=== PATIENT | male | born 1995 | race Caucasian/White ===

== ENCOUNTER 2019-04-06 11:27 | Inpatient (IN) | payer BC ==
--- NOTE | 2019-04-06 11:45 | ED ---
Psychiatric Complaint - HPI Summary HPI Summary: Patient is a 24-year-old male who presents emergency department for psychiatric evaluation. Patient notes a history of depression and is currently on fluoxetine. Patient has had 2 prior admissions to psychiatric unit. 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 Patient states he has been feeling more depressed and suicidal since returning to school. Patient states he tried to strangle himself yesterday with a belt. He also has plans to take his bottle of fluoxetine. Symptoms are severe in severity. No current modifying factors. - History Of Current Complaint Chief Complaint: EDSuicidal Time Seen by Provider: 04/06/19 11:38 Hx Obtained From: Patient - Allergies/Home Medications Allergies/Adverse Reactions: Allergies Allergy/AdvReac Type Severity Reaction Status Date / Time No Known Allergies Allergy Verified 04/06/19 11:37 Home Medications: Home Medications FLUoxetine CAP* [PROzac CAP*] 30 mg PO DAILY 04/06/19 [History Confirmed ] PMH/Surg Hx/FS Hx/Imm Hx Previously Healthy: Yes Endocrine/Hematology History: Denies: Hx Diabetes Cardiovascular History: Denies: Hx Hypertension, Hx Pacemaker/ICD History: Denies: Hx Renal Disease Sensory History: Denies: Hx Hearing Aid Psychiatric History: Denies: Hx Panic Disorder - Surgical History Surgery Procedure, Year, and Place: DENIES Infectious Disease History: No Infectious Disease History: Reports: Traveled Outside the [place] in Last 30 Days - [place] - Family History Known Family History: Positive: Non-Contributory - Social History Occupation: Student Lives: Dormitory/Roommates Review of Systems Cardiovascular: Negative Respiratory: Negative Gastrointestinal: Other Positive: Nausea Neurological: Negative Positive: Depressed All Other Systems Reviewed And Are Negative: Yes Physical Exam Triage Information Reviewed: Yes Vital Signs On Initial Exam: Initial Vitals Temp Pulse Resp BP Pulse Ox 98.3 F 59 16 130/80 97 04/06/19 11:33 04/06/19 11:33 04/06/19 11:33 04/06/19 11:33 04/06/19 11:33 Vital Signs Reviewed: Yes Appearance: Positive: Well-Appearing - Pt. sitting on Head/Face: Positive: Normal Head/Face Inspection Eyes: Positive: Normal, EOMI Neck: Positive: Supple Musculoskeletal: Positive: Normal, Strength/ROM Intact Neurological: Positive: Normal, CN Intact II-III Psychiatric: Positive: Depressed Diagnostics - Vital Signs Vital Signs Temp Pulse Resp BP Pulse Ox 04/06/19 11:33 98.3 F 59 16 130/80 97 - Laboratory Result Diagrams: 04/06/19 11:59 04/06/19 11:59 Lab Statement: Any lab studies that have been ordered have been reviewed, and results considered in the medical decision making process. Course/Dx - Course Course Of Treatment: Pt. medically cleared and underwent MHE. He has been accepted to the [facility] by Dr. Austin. Labs unremarkable. - Differential Dx/Clinical Impression Differential Diagnosis/HQI/PQRI: Positive: Depression, Suicide Attempt, Suicidal Ideation Provider Diagnosis: Depression Discharge ED - Sign-Out/Discharge Documenting (check all that apply): Patient Departure Patient Received Moderate/Deep Sedation with Procedure: No - Discharge Plan Condition: Stable [facility] [place] and Condition Condition: STABLE Disposition: [place] [facility] [place]
[2019-04-06 12:11] LABS: ABS Lymphocytes 1.6 10^3/ul (1.0-4.8); ABS Monocytes 0.7 10^3/ul (0-0.8); ABS Neutrophils 6.5 10^3/ul (1.5-7.7); Eosinophil % 0.4 %; Hematocrit 43 % (42-52); Hemoglobin 14.8 g/dL (14.0-18.0); Lymphocyte % 18.3 %; Mean Corpuscular HGB Conc 35 g/dL (31-36); Mean Corpuscular Hemoglobin 32 pg (27-31); Mean Corpuscular Volume 92 fL (80-94); Mean Platelet Volume 9.2 fL (7.4-10.4); Nucleated Red Blood Cells % 0.1; Platelet Count 268 10^3/uL (150-450); Red Blood Count 4.64 10^6 /uL (4.18-5.48); Red Cell Distribution Width 13 % (10-15)
[2019-04-06 12:27] LABS: ALT 12 U/L (7-52); AST 13 U/L (13-39); Albumin 5.1 g/dL (3.2-5.2); Albumin/Globulin Ratio 1.8 (1-3); Alkaline Phosphatase 68 U/L (34-104); Anion Gap 9 mmol/L (2-11); BUN/Creatinine Ratio 12.6 (8-20); Blood Urea Nitrogen 12 mg/dL (6-24); CO2 Carbon Dioxide 26 mmol/L (22-32); Chloride 102 mmol/L (101-111); EGFR Non-African American 99.1 (>60); Globulin 2.9 g/dL (2-4); Glucose 105 mg/dL (70-100); Sodium 137 mmol/L (135-145)
[2019-04-06 13:05] LABS: Acetaminophen < 15 mcg/mL; Alcohol < 10 mg/dL (<10); Salicylate < 2.50 mg/dL (<30)
[2019-04-06 13:18] LABS: TSH (Thyroid Stimulating Horm) 0.83 mcIU/mL (0.34-5.60)
[2019-04-06] MEDS ORDERED: Al Hydrox/Mg Hydrox/Simet LIQ* 30 ML UDC PO PRN (13:31)
[2019-04-06] MEDS ORDERED: Acetaminophen TAB* 325 MG PO PRN (13:31)
[2019-04-06] MEDS ORDERED: hydrOXYzine HCL TAB* 50 MG PO PRN (13:32)
[2019-04-06 15:54] LABS: Urine Appearance Cloudy; Urine Bilirubin Negative (Negative); Urine Blood Negative (Negative); Urine Color Yellow; Urine Glucose Negative (Negative); Urine Ketones 1+ (Negative); Urine Nitrite Negative (Negative); Urine Protein Negative (Negative); Urine Specific Gravity 1.019 (1.010-1.030); Urine Urobilinogen Negative (Negative)
[2019-04-06 16:02] LABS: Urine Benzodiazepine Screen None Detected (None Detect); Urine Opiates Screen None Detected (None Detect)
[2019-04-07] MEDS ORDERED: FLUoxetine CAP* 10 MG PO SCH (09:00)
[2019-04-07] MEDS ORDERED: cloNIDine TAB* 0.1 MG PO PRN (10:34)
[2019-04-07] MEDS ORDERED: FLUoxetine CAP* 10 MG PO ONE (10:34)
[2019-04-07] MEDS ORDERED: diPHENhydraMINE PO* 50 MG PO PRN (10:36)
--- NOTE | 2019-04-07 14:09 | HP ---
HISTORY AND PHYSICAL: DATE OF ADMISSION: 04/06/19 SUPERVISING PSYCHIATRIST: Dr. Jeb Austin.* (DICTATED BY JANEY CLAUDIO NP) JUSTIFICATION FOR ADMISSION: The patient presented to the emergency department via EMS after meeting with his primary care provider. He had an aborted suicide attempt and continues to endorse suicidal ideation. He merits hospitalization for immediate safety and stabilization. 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 Iqbal. The patient reports increasing depression in the past month. He reports he returned to campus last Thursday. 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 The patient endorses feeling overwhelmed and unable to function. He states that he has poor concentration and he is having difficulty getting prepared for this semester. 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 He states that he is having difficulty sleeping. He endorses low energy, low motivation, and depressed mood. He reports decreased appetite with a loss of 5 to 10 pounds. He reports thoughts of suicidal ideation in the past, but this was his first attempt. He tried to asphyxiate himself with his belt. He also wrote a suicide note that he shared with Dr. Iqbal. He endorses panic attacks up to twice a week. The patient reports he had a stressful freshman and sophomore years; however, he did well his jesus year. He reports that he went to counseling at [employer] during the fall semester of his jesus year and that this went well. He stopped going in the spring for lack of need. He has been prescribed fluoxetine by Dr. Iqbal and a provider in [place]. He reports a history of increased dose, but has recently been taking 30 mg daily. He denies side effects from this medicine. He reports taking it regularly. Dr. Iqbal had called the mental health chair spring assembler and reported that she was sending him due to suicidal ideation which is outside of her known history with him. She reports he has a history of depression since high school and he follows up with both [employer] and a local provider in [place]. The patient also endorses that he is on the varsity tennis team and he is having difficulty attending the first practice because of anxiety. He reports he has a girlfriend who graduated from [employer] last December and now lives home in [place]. He reports this relationship is going well and she is supportive. He does state that it is difficult to be so far away from her at this time. PAST PSYCHIATRIC HISTORY: The patient has a history of 2 psychiatric hospitalizations in [place]. He started counseling when he was approximately a freshman in high school. He has been trialed on fluoxetine with various doses. He reports a trial of aripiprazole in approximately 2012 and his family noted side effects of lethargy and weight gain. As stated above , the patient saw a therapist, Gilbert Ravi, at [employer] during the fall of 2017. The patient denies a history of abuse or trauma. SUBSTANCE USE HISTORY: The patient reports occasional alcohol use 1 to 2 drinks at a time and that his last use was last weekend. He reports rare marijuana use, last use in December. He denies tobacco, pills, or other substance use. PAST MEDICAL HISTORY: Torn left ACL. He denies other medical problems or surgeries. CURRENT MEDICATIONS: Fluoxetine 30 mg. ALLERGIES: No known drug allergies. PRIMARY CARE PROVIDER: Dr. Dayna Iqbal at [employer]. FAMILY PSYCHIATRIC HISTORY: The patient reports his mother's side has a history of depression. He has no knowledge of other mental health diagnosis or suicide in the family. SOCIAL HISTORY: The patient is the eldest of 2 sons by parents who 2 to 3 years ago. His father lives in [place]. His mom lives in [place]. The patient's younger brother is 18 and a freshman at [employer]. The patient denies history of legal or involvement. As stated above, the patient is in a heterosexual relationship and reports this is going well. REVIEW OF SYSTEMS: Constitutional: Negative. No fever, chills, or fatigue. ENT: Negative. Cardiovascular: Negative. Denies chest pain or palpitations. Respiratory: Negative. Denies shortness of breath or cough. Genitourinary: Negative. Musculoskeletal: Negative. Neurological: Negative. PHYSICAL EXAMINATION GENERAL APPEARANCE: The patient is well appearing and well nourished. VITAL SIGNS: T 98.2, P 63, respiration rate 16, O2 saturation 100%, BP 133/67. Height 5 feet 9 inches, weight 190 pounds. HEENT: Head and Face: Normal head and face inspection. Eyes: Positive EOMI. PERRL. Conjunctivae clear. NECK: Supple. Full ROM. Trachea midline. RESPIRATORY: Lung sounds clear to auscultation. Breath sounds present. CARDIOVASCULAR: Heart RRR. Pulses are symmetrical in both upper and lower extremities. MUSCULOSKELETAL: Normal strength. ROM intact. NEUROLOGICAL: Normal sensory, motor intact. Alert and oriented x3 with normal gait. Cerebellar function intact. SKIN: Warm and dry. Color reflects adequate perfusion. DIAGNOSTIC STUDIES/LAB DATA: Laboratory data obtained in the emergency department. CBC within normal limits. Chemistry within normal limits. TSH normal at 0.83. Urinalysis, 1+ ketones. Toxicology negative for salicylates, acetaminophen, or alcohol and urine drug screen is negative. MENTAL STATUS EXAM: Kulwinder is a 24-year-old white male with muscular build, who appears stated age. He is adequately groomed and casually dressed in T-shirt and shorts. He sits in chair with erect, but tense posture. He is cooperative and answers questions fully. He appears to be a good historian. The patient is alert and oriented x3. Eye contact is good. Speech is soft, articulate, and spontaneous. Concentration is poor. Memory 3/3. Mood is dysphoric with tearful affect. No abnormal psychomotor activity noted. Thought process is coherent, impoverished. Thought content is positive for suicidal ideation. He denies HI or . He denies auditory or visual hallucinations. There are no perceptual disturbances noted. Insight and judgment are fair, in that he is willing to be admitted to a psychiatric unit for stabilization. Fund of knowledge is adequate. The patient appears to have average intellect by virtue of vocabulary and educational attainment. DIAGNOSIS: Major depressive disorder, severe, recurrent, with anxious distress. ASSESSMENT: Kulwinder is a 24-year-old male with 2 known prior psychiatric admissions as a teenager in high school who presented to the ED after an appointment with his college physician, wherein he disclosed an aborted suicide attempt. He was willing to be transferred to [facility] for psychiatric admission. He endorses many symptoms concurrent with major depressive disorder including suicidal ideation. According to Dr. Iqbal, the patient has a history of anxiety related to periods of transition. The patient has consented to full psychiatric treatment including collaboration with outpatient providers and his family. PLAN: The patient is admitted to adult behavioral services unit on voluntary status. Code status is full. He is placed on 15-minute checks for safety. We have discussed recommendation to increase SSRI and utilize clonidine as needed for anxiety. We will trial diphenhydramine for sleep. The patient is encouraged to participate in supportive milieu, individual sessions with staff, and psychoeducational groups. We will titrate medications to efficacy and monitor for mood and thought content. Treatment planning will include family involvement and outpatient providers. Estimated length of stay is 3 to 5 days. JANEY CLAUDIO NP [id number]/CPS #: [id number] JACINTO
[2019-04-08 08:28] LABS: HDL Cholesterol 24.7 mg/dL
[2019-04-08] MEDS: FLUoxetine CAP* 20 MG PO SCH (10:55)
--- NOTE | 2019-04-08 11:35 | PN ---
BSU: Group Therapy Note - Service Type Service Type: 42315 Group Psychotherapy - CBT Group Note: Kulwinder was attentive and particaptory in programming this morning, engaging in an earnest and thoughtful fashion. He presented with fair affect that varied appropriately with conversation and was empathic with staff and peers. He described struggling to adjust to moving back to college recently.
--- NOTE | 2019-04-08 16:15 | PN ---
Subjective - Subjective Date of Service: 04/08/19 Service Type: 22784 Hosp care 25 min moderate complexity Subjective: Patient reports hopefulness and that he had a "sheridan" moment during a group last evening. He states he slept very well and denies anxiety. He denies readiness for discharge today and is agreeable to leave with his mother upon her arrival tomorrow. He denies SI or passive wish. He has been participating in discharge planning. Candlemaker spoke with patient's PCP, Dr Iqbal and gave update on presentation and medication changes. She states she spoke with psychiatrist and is hopeful that the patient will be given an intake appointment. She will also see him for follow up. Objective - General Observations Appearance: Neat Stature: WNL Posture: WNL Eye Contact: Average Behavior/Activity: WNL - Interaction Observations Attitude Towards Examiner: Cooperative Stated Mood: Euthymic Affect: Bright Speech Pattern/Tone: Clear, Appropriate, Normal Volume Thought Process: Coherent, Goal Directed Perception: WNL Thought Content: WNL Hallucination Type: None Delusion Type: None - Cognitive Function Orientation: A&O x 4 Level of Consciousness: Alert Cognition: WNL Estimated Intelligence: Normal Insight: WNL Judgment Within Normal Limits: Yes - Medication Compliance Cooperative with Inpatient Medication Regimen: Yes - Group Participation Participates in Group Activities: Yes Assessment - Assessment Merits Inpatient Hospitalization: For Immediate Safety, For Stabilization Inpatient DSM-V Dx: F33.1 Clinical Impression: 24yo white male with 2 prior psychiatric hospitalizations and history of depression and anxiety who presented to the ED after an appointment with his [facility] physician, wherein he disclosed an aborted suicide attempt. He agreed to transfer to [facility] for psychiatric admission. He endorses much improvement in mood, anxiety and sleep during hospitalization. Plan - Plan Treatment Plan: Name: ELI CHAMBERLAIN Birthdate: 1995 [id number] continue acute intensive psychiatric treatment. may decrease to q30min and allow staff pass/computer use per RN discretion. continue fluoxetine 40mg daily, clonidine 0.1mg BID prn anxiety and diphenhydramine 50mg qhs prn insomnia. Patient's mother is planning to arrive on 04/09/19 to assist with discharge and transition to outpatient care. Continued Medication Management: Start Medication Medications: Current Medications Acetaminophen (Tylenol Tab*) 650 mg PO Q4H PRN PRN Reason: for pain; or Temp >101 F Al Hydrox/Mg Hydrox/Simethicone (Maalox Plus*) 30 ml PO Q4H PRN PRN Reason: INDIGESTION Clonidine HCl (Catapres Tab*) 0.1 mg PO BID PRN PRN Reason: ANXIETY Diphenhydramine HCl (Benadryl Po*) 50 mg PO BEDTIME PRN PRN Reason: INSOMNIA Fluoxetine HCl (Prozac Cap*) 40 mg PO DAILY MYESHA Last Admin: 04/08/19 10:55 Dose: 40 mg - Discharge Plan Discharge Plan: Inpatient Hospitalization Outpatient Program: [facility]
[2019-04-09 09:51] VITALS: BP 103/83
[2019-04-09] MEDS: FLUoxetine CAP* 20 MG PO SCH (11:26)
--- NOTE | 2019-04-10 20:42 | PN ---
Progress Note - Progress Note Date of Service: 04/09/19 Note: Saw Kulwinder prior to his mother picked him up. Kulwinder presented psychiatrically stable without any evidence of mood, thoughts or perceptual disturbances. Denied SI/ HI. Was safe to go home with his mother.
--- NOTE | 2019-04-12 13:08 | DS ---
CC: [facility]; [facility]* DISCHARGE SUMMARY: DATE OF ADMISSION: 04/06/19 DATE OF DISCHARGE: 04/09/19 SUPERVISING PSYCHIATRIST: Jeb Austin MD* (dictated by CESAR Stock) . DISCHARGE DIAGNOSES: Major depressive disorder with anxious distress. CONDITION AT THE TIME OF DISCHARGE: Improved. The patient is euthymic with bright affect. He is well related. He reports readiness for discharge. His mother has arrived from out of state to pick him up and reports intent to remain with him for a few days while he transitions back to [facility]. The patient denies suicidal ideation. He reports improvement in mood, appetite , and sleep. He reports being in contact with the college and friends had been supportive to him. The patient is discharged to home. MENTAL STATUS EXAM: Kulwinder is a 24-year-old white male with muscular build, who appears stated age. He is adequately groomed and causally dressed in his own clothing. He is cooperative and answered questions fully. He is alert and oriented x3. Eye contact is good. Speech is soft, articulate, and spontaneous. Concentration is good. Memory 3/3. Mood is euthymic with bright affect. No abnormal psychomotor activity noted. Thought process is coherent, goal directed. Thought content is negative for suicidal ideation or passive wish. He denies HI or . He denies auditory or visual hallucinations. There are no perceptual disturbances noted. Insight and judgment are good. Fund of knowledge is excellent. Intelligence appears to be average. INSTRUCTIONS GIVEN TO PATIENT: A. Medications: 1. Fluoxetine 40 mg p.o. daily. 2. Clonidine 0.1 mg p.o. daily p.r.n. anxiety. 3. Diphenhydramine 50 mg p.o. q.h.s. p.r.n. insomnia. 4. Fluoxetine and clonidine were prescribed to [facility]. B. Diet: Regular. C: Activity: Ambulation as tolerated. Tobacco cessation is not applicable. There are no pending labs or diagnostic studies. Substance use followup is not applicable. D: Followup care: The patient will return to [facility] for primary care and will see Dr. Iqbal. He is referred to Nathalie Mcfarland as a revenue manager and will meet with him after the holiday weekend, and the patient has appointments at [facility] for therapy and psychiatry. HOSPITAL COURSE: Part A: Reason for admission: The patient presented to the emergency department via EMS after meeting with his primary care provider. He had an aborted suicide attempt and continued to endorse suicidal ideation. Chief Complaint: "I have been having a lot of negative thoughts. 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 Iqbal. The patient reports increasing depression in the past month. He reports he returned to campus last Thursday. 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 The patient endorses feeling overwhelmed and unable to function. He reports poor concentration and having difficulty getting prepared for the semester. 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 He states he is having difficulty sleeping. He endorses low energy, low motivation , and depressed mood. He reports decreased appetite with a loss of 5 to 10 pounds. He reports thoughts of suicidal ideation in the past but this is his first attempt. He tried to strangle himself with his belt. He also wrote a suicide note that he shared with Dr. Iqbal. He endorses panic attacks up to twice a week. The patient reports he had stressful freshman and sophomore years ; however, he did well in his jesus year. He reports he went to counseling at during the fall semester of his jesus year and that this went well. He stopped going in the spring for lack of need. He has been prescribed fluoxetine by Dr. Iqbal and a provider in [place]. He reports a history of increased dose but had recently been taking 30 mg. He denies side effects from this medicine and reports taking it regularly. Dr. Iqbal had called the mental health lounge car attendant and reported that she will be sending him due to suicidal ideation, which is outside of her known history with him. She reports he has a history of depression since high school and he follows up with both and a local provider in [place]. The patient also endorses that he is on the varsity tennis team and he is having difficulty attending the first practice because of anxiety. He reports he has a girlfriend who graduated from last December and now lives home in [place]. He reports this relationship is going well and she is supportive. He does state that it is difficult to be so far away from her at this time. Part B: Psychiatric treatment rendered: The patient was admitted to adult behavioral services unit on voluntary status. Code status was full. He was placed on 15-minute checks for safety. We increased fluoxetine to 40 mg daily and the patient was ordered clonidine as needed for anxiety. He did not utilize this or diphenhydramine for sleep. He participated fully in supportive milieu, individual sessions with staff and psychoeducational groups. The following day after hospitalization, the patient reported much improvement in sleep. He reported desire to remain in the hospital for 1 more day for safety and to have another good night sleep. He reported that groups were helpful and being in contact with [facility] professional was helpful as well. The patient's primary care provider and this senior writer collaborated on the phone and she referred him to the [facility] psychiatrist to be seen after discharge. On the day of discharge, the patient reported readiness. His mother had arrived from [place] as planned. Please see H and P for laboratory data. There were no consults obtained. JANEY CLAUDIO NP [id number]/CPS #: [id number] JACINTO
== END 2019-04-09 16:00 | disposition home or self-care (01) | DRG 751 ==
LOC: ED 11:27 → BSU 13:31
PROVIDERS: ADMIT Psychiatry & Neurology Psychiatry; ATTEND Psychiatry & Neurology Psychiatry
PROC: GZHZZZZ Group Psychotherapy (ICD-10-PCS; principal; 2019-04-08)
DX: F33.2 Major depressive disorder, recurrent severe without psychotic features (principal); R45.851 Suicidal ideations; F41.9 Anxiety disorder, unspecified; Z81.8 Family history of other mental and behavioral disorders; Z72.89 Other problems related to lifestyle
CPT/HCPCS: 36415; 80053; 80061; 80307; 80320; 80329; 81003; 83036; 84443; 85025; 99222; 99284; A9270-GY; G0480

== ENCOUNTER 2019-04-20 15:24 | Inpatient (IN) | payer BC ==
[2019-04-20 16:06] LABS: ABS Basophils 0.1 10^3/ul (0-0.2); ABS Eosinophils 0.1 10^3/ul (0-0.6); ABS Lymphocytes 2.2 10^3/ul (1.0-4.8); ABS Monocytes 0.9 10^3/ul (0-0.8); ABS Neutrophils 6.7 10^3/ul (1.5-7.7); Eosinophil % 0.8 %; Hematocrit 44 % (42-52); Hemoglobin 15.2 g/dL (14.0-18.0); Lymphocyte % 21.8 %; Mean Corpuscular HGB Conc 35 g/dL (31-36); Mean Corpuscular Hemoglobin 32 pg (27-31); Mean Corpuscular Volume 92 fL (80-94); Mean Platelet Volume 9.4 fL (7.4-10.4); Nucleated Red Blood Cells % 0.1; Platelet Count 287 10^3/uL (150-450); Red Blood Count 4.72 10^6 /uL (4.18-5.48); Red Cell Distribution Width 12 % (10-15); White Blood Count 9.9 10^3/uL (3.5-10.8)
--- NOTE | 2019-04-20 16:15 | ED ---
Psychiatric Complaint - HPI Summary HPI Summary: This patient is a 24 year old M presenting to [facility] with a chief complaint of SI with ideas since yesterday. Pt states he was on a bridge yesterday thinking about jumping off. Pt has been feeling depressed for 2-3 weeks and says he is not himself. He last saw a psychiatrist 2 weeks ago when he was admitted to [facility]. He was diagnosed with depression and anxiety. The patient rates the pain 0/ 10 in severity. Symptoms aggravated by nothing. Symptoms alleviated by nothing. Patient denies HI, hallucinations, and physical pain. Medications reviewed. Allergies noted. Pt does not smoke or use drugs, and rarely drinks alcohol. - History Of Current Complaint Chief Complaint: EDMentalHealth Time Seen by Provider: 04/20/19 15:36 Hx Obtained From: Patient Onset/Duration: Sudden Onset, Lasting Days - 1 Timing: Constant Severity Initially: Moderate Severity Currently: Moderate Aggravating Factor(s): Nothing Alleviating Factor(s): Nothing Associated Signs And Symptoms: Negative: Hallucinating Has Suicidal: Reports: Thoughts, With A Plan - jumping off a bridge Has Homicidal: Denies: Thoughts, With A Plan - Allergies/Home Medications Allergies/Adverse Reactions: Allergies Allergy/AdvReac Type Severity Reaction Status Date / Time No Known Allergies Allergy Verified 04/06/19 11:37 PMH/Surg Hx/FS Hx/Imm Hx Previously Healthy: No Endocrine/Hematology History: Denies: Hx Diabetes Cardiovascular History: Denies: Hx Hypertension, Hx Pacemaker/ICD History: Denies: Hx Renal Disease Sensory History: Denies: Hx Contacts or Glasses, Hx Hearing Aid Opthamlomology History: Denies: Hx Contacts or Glasses Psychiatric History: Reports: Hx Anxiety, Hx Depression Denies: Hx Eating Disorder, Hx Panic Disorder, Hx of Violent Episodes Against Others - Surgical History Surgical History: Yes Surgery Procedure, Year, and Place: ACL repair January 2018 Infectious Disease History: No Infectious Disease History: Denies: Traveled Outside the [place] in Last 30 Days - Family History Known Family History: Positive: Non-Contributory - Social History Alcohol Use: Rare Substance Use Type: Reports: Marijuana Smoking Status (MU): Never Smoked Tobacco Review of Systems Constitutional: Other - negative - physical pain Psychological: Other - positive - SI with a plan. negative - HI, hallucinations Positive: Depressed All Other Systems Reviewed And Are Negative: Yes Physical Exam - Summary Physical Exam Summary: Constitutional: Well-developed, Well-nourished, Alert. (-) Distressed Skin: Warm, Dry HENT: Normocephalic; Atraumatic Eyes: Conjunctiva normal Neck: Musculoskeletal ROM normal neck. (-) JVD, (-) Stridor, (-) Tracheal deviation Cardio: Rhythm regular, rate normal, Heart sounds normal; Intact distal pulses; The pedal pulses are 2+ and symmetric. Radial pulses are 2+ and symmetric. (-) Murmur Pulmonary/Chest wall: Effort normal. (-) Respiratory distress, (-) Wheezes, (-) Rales Abd: Soft, (-) tenderness, (-) Distension, (-) Guarding, (-) Rebound Musculoskeletal: (-) Edema Lymph: (-) Cervical adenopathy Neuro: Alert, Oriented x3 Psych: Depressed affect. Triage Information Reviewed: Yes Vital Signs On Initial Exam: Initial Vitals Temp Pulse Resp BP Pulse Ox 98.6 F 73 14 130/97 96 04/20/19 15:26 04/20/19 15:26 04/20/19 15:26 04/20/19 15:26 04/20/19 15:26 Vital Signs Reviewed: Yes Diagnostics - Vital Signs Vital Signs Temp Pulse Resp BP Pulse Ox 04/20/19 15:26 98.6 F 73 14 130/97 96 - Laboratory Lab Results: Lab Results 04/20/19 Range/Units 15:55 WBC 9.9 (3.5-10.8) 10^3/uL RBC 4.72 (4.18-5.48) 10^6 /uL Hgb 15.2 (14.0-18.0) g/dL Hct 44 (42-52) % MCV 92 (80-94) fL MCH 32 H (27-31) pg MCHC 35 (31-36) g/dL RDW 12 (10-15) % Plt Count 287 (150-450) 10^3/uL MPV 9.4 (7.4-10.4) fL Neut % (Auto) 67.5 % Lymph % (Auto) 21.8 % [place] % (Auto) 9.3 % Eos % (Auto) 0.8 % Baso % (Auto) 0.6 % Absolute Neuts (auto) 6.7 (1.5-7.7) 10^3/ul Absolute Lymphs (auto) 2.2 (1.0-4.8) 10^3/ul Absolute Monos (auto) 0.9 H (0-0.8) 10^3/ul Absolute Eos (auto) 0.1 (0-0.6) 10^3/ul Absolute Basos (auto) 0.1 (0-0.2) 10^3/ul Absolute Nucleated RBC 0.0 10^3/ul Nucleated RBC % 0.1 Result Diagrams: 04/20/19 15:55 04/20/19 15:55 Lab Statement: Any lab studies that have been ordered have been reviewed, and results considered in the medical decision making process. Course/Dx - Differential Dx/Clinical Impression Provider Diagnosis: Major depressive disorder, recurrent episode with anxious distress - Physician Notifications Discussed Care Of Patient With: Ambrocio Vergara Time Discussed With Above Provider: 17:49 Instructed by Provider To: Other - Dr. Vergara says pt will be admitted. Discharge ED - Sign-Out/Discharge Documenting (check all that apply): Patient Departure - admit Patient Received Moderate/Deep Sedation with Procedure: No - Discharge Plan Condition: Stable Disposition: ADMITTED TO [facility] [Z.BUSINESS, APPLICATION, OTHER] - - Attestation Statements Document Initiated by Scribe: Yes Documenting Scribe: Jp Carrillo Provider For Whom Torieibe is Documenting (Include Credential): Dr. Bull Cervantes MD Scribe Attestation: IJp, scribed for Dr. Bull Cervantes MD on 04/20/19 at 1747. Status of Scribe Document: Ready
[2019-04-20 16:20] LABS: ALT 12 U/L (7-52); AST 14 U/L (13-39); Albumin 5.2 g/dL (3.2-5.2); Albumin/Globulin Ratio 1.7 (1-3); Alcohol < 10 mg/dL (<10); Alkaline Phosphatase 64 U/L (34-104); Anion Gap 9 mmol/L (2-11); BUN/Creatinine Ratio 12.4 (8-20); Blood Urea Nitrogen 13 mg/dL (6-24); CO2 Carbon Dioxide 27 mmol/L (22-32); Calcium 10.1 mg/dL (8.6-10.3); Chloride 103 mmol/L (101-111); EGFR African American 106.9 (>60); EGFR Non-African American 88.3 (>60); Glucose 100 mg/dL (70-100); Potassium 4.1 mmol/L (3.5-5.0); Sodium 139 mmol/L (135-145); Total Protein 8.2 g/dL (6.4-8.9)
[2019-04-20 19:17] LABS: Urine Appearance Cloudy; Urine Bilirubin Negative (Negative); Urine Blood Negative (Negative); Urine Color Yellow; Urine Glucose Negative (Negative); Urine Ketones Trace (Negative); Urine Nitrite Negative (Negative); Urine Protein Negative (Negative); Urine Specific Gravity 1.018 (1.010-1.030); Urine Urobilinogen Negative (Negative)
[2019-04-20] MEDS ORDERED: Acetaminophen TAB* 325 MG PO PRN (19:20)
[2019-04-20] MEDS ORDERED: cloNIDine TAB* 0.1 MG PO PRN (19:20)
[2019-04-20] MEDS ORDERED: Al Hydrox/Mg Hydrox/Simet LIQ* 30 ML UDC PO PRN (19:21)
[2019-04-20 19:36] LABS: Urine Benzodiazepine Screen None Detected (None Detect); Urine Opiates Screen None Detected (None Detect)
[2019-04-20] MEDS: diPHENhydraMINE PO* 50 MG PO PRN (22:30)
[2019-04-21] MEDS ORDERED: FLUoxetine CAP* 20 MG PO SCH (09:00)
[2019-04-21 09:10] LABS: HDL Cholesterol 25.3 mg/dL
[2019-04-21] MEDS: Multivitamins/Minerals TAB PO SCH (10:12)
--- NOTE | 2019-04-21 11:31 | PN ---
BSU: Group Therapy Note - Service Type Service Type: 51700 Group Psychotherapy - Cognitive Behavioral Group Therapy ( CBT):Patient was attentive and participatory in CBT programming this morning, and remained in good behavioral control. Patient expressed positive insights regarding relevant treatment interventions and goals.
[2019-04-21] MEDS ORDERED: FLUoxetine CAP* 20 MG PO ONE (13:14)
[2019-04-21] MEDS ORDERED: buPROPion TAB* 100 MG PO ONE (13:15)
[2019-04-21] MEDS ORDERED: LORazepam TAB(*) 0.5 MG PO PRN (13:15)
--- NOTE | 2019-04-21 15:07 | HP ---
HISTORY AND PHYSICAL: DATE OF ADMISSION: 04/20/19 SUPERVISING PSYCHIATRIST: Dr. Jeb Austin.* (DICTATED BY JANEY CLAUDIO NP) JUSTIFICATION FOR ADMISSION: The patient presented to the emergency department via law enforcement from [facility] due to thoughts of suicidal ideation and an aborted suicide attempt. The patient merits hospitalization for immediate safety and stabilization. 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 The patient has been experiencing increased depression and anxiety in the past month during the transition back to [facility] at [facility]. While hospitalized last month , we increased his fluoxetine from 20 to 40 mg and he was prescribed clonidine as needed for anxiety. He was referred to a psychiatrist at [facility] through the patient's primary care provider, Dr. Iqbal at [facility]. The patient reports he has been trying to go to classes, trying to participate in extracurricular activities, but is having difficulty leaving his apartment. He reports he was not able to attend the appointment with psychiatrist and he has not been following through with either academic or mba internship requirements. He reports depressive thoughts of that he is a failure , that he cannot do this. He reports feeling numb most of the time. He endorses anhedonia, excessive guilt, hopelessness, and helplessness. He reports decreased appetite. He states even when he does attend tennis practice or anything that he typically enjoys, it feels like he is just going through the motions. He reports improved sleep, but also endorses hypersomnia. He reports utilizing clonidine for anxiety, but this had limited effect. He reports Benadryl has been helpful for sleep. The patient states that he left his apartment on Thursday purposefully to go near a bridge. He went to a bridge near campus with a plan to jump. He states that the safety nets stopped him from going through with the jump. He sat down next to the stream and eventually left and returned home. He then went to the counseling appointment the following day, disclosed this information to his therapist and was agreeable to be transported to the hospital. Today, the patient continues to endorse passive wish. He reports thoughts of strangling himself with a belt or overdosing on medications. He presents as dysphoric and anxious. He identifies that he is ashamed that he is still symptomatic. He reports he has discussed the potential for pursuing medical leave with the regional sales manager at , [employer]. He and his mother have been in contact and she is making arrangements to come to [place]. Social Work is going to reach out to the patient's mother. I have left a message with his primary care provider, Dr. Iqbal at [facility]. PSYCHIATRIC REVIEW OF SYSTEMS: As stated above, the patient endorses depressed mood, anxiousness with some agoraphobic tendencies. He denies obsessions, compulsions, or rituals. He denies auditory or visual hallucinations. He denies periods of pedro or hypomania. PAST PSYCHIATRIC HISTORY: The patient has a history of 3 prior psychiatric hospitalizations. The first 2 were in [place] when he was approximately a freshman in high school. The most recent one was at [facility] from 04/06/19 to 04/09/19. Outpatient counseling started when he was approximately a freshman in high school. He went to outpatient counseling at [facility] during the fall semester of his jesus year. He stopped going in the spring for lack of need. He has been prescribed fluoxetine by Dr. Iqbal and his primary care provider in [place]. He has had various doses of fluoxetine, most recently 40 mg. He reports a trial of aripiprazole in approximately 2012 and his family noted side effects of lethargy and weight gain. The patient is currently seeing Gilbert Ravi at [facility]. TRAUMA/ABUSE HISTORY: The patient denies. SUBSTANCE USE HISTORY: The patient reports occasional alcohol use 1 to 2 drinks at a time and denies recent use. He reports rare marijuana use, last use in December. He denies tobacco, pills, or other substance use. PAST MEDICAL HISTORY: Torn left ACL. He denies other medical problems or surgeries. CURRENT MEDICATIONS: 1. Fluoxetine 40 mg p.o. daily. 2. Clonidine 0.1 mg p.o. daily p.r.n. anxiety. ALLERGIES: No known drug allergies. PRIMARY CARE PROVIDER: Dr. Dayna Iqbal at [facility]. FAMILY PSYCHIATRIC HISTORY: The patient reports his mother's side has a history of depression. He has no knowledge of other mental health diagnosis or suicide in the family. SOCIAL HISTORY: The patient is the eldest of 2 sons by parents who 2 to 3 years ago. His father lives in [place]. His mother lives in [place]. The patient's younger brother is 18 and a freshman at [employer]. The patient denies history of legal or involvement. The patient identifies as heterosexual and his girlfriend is living in [place] and she graduated from [employer] in December. He reports this is going well. REVIEW OF SYSTEMS: Constitutional: Negative. No fever, chills, or fatigue. ENT: Negative. Cardiovascular: Negative. Denies chest pain or palpitations. Respiratory: Negative. Denies shortness of breath or cough. Genitourinary: Negative. Musculoskeletal: Negative. Neurological: Negative. PHYSICAL EXAMINATION GENERAL APPEARANCE: The patient is well appearing and well nourished, in no apparent distress. VITAL SIGNS: T 98.7, P 75, respiration rate 16, O2 saturation 100%, BP 123/55. HEENT: Head and face: Normal head and face inspection. Eyes: Positive EOMI. PERRL. Conjunctivae clear. NECK: Supple. Full ROM. Trachea midline. RESPIRATORY: Lung sounds clear to auscultation, breath sounds present. CARDIOVASCULAR: Heart RRR. Pulses are symmetrical in both upper and lower extremities. MUSCULOSKELETAL: Normal strength. ROM intact. NEUROLOGICAL: Normal sensory and motor intact. Alert and oriented x3, with normal gait. Cerebellar function intact. SKIN: Warm and dry. Color reflects adequate perfusion. LABORATORY DATA: CBC grossly unremarkable. Chemistry within normal limits. Lipid panel within normal limits. Urinalysis: Trace ketones. Toxicology negative for alcohol. Urine drug screen negative. MENTAL STATUS EXAM: Kulwinder is a 24-year-old white male with muscular build, who appears stated age. He is minimally groomed and casually dressed in T-shirt and shorts. He sits opposite interviewer with erect and tense posture. He is cooperative and answers questions fully. He appears to be a good historian. The patient is alert and oriented x3. Eye contact is good. Speech is soft, articulate, and spontaneous. Concentration is poor. Memory is 3/3. Mood is dysphoric with restricted affect, near tearful at times, noted to be fidgety and appears anxious. Thought process is logical, impoverished. Thought content is positive for suicidal ideation and passive wish. He denies HI or . He denies auditory or visual hallucinations. There are no perceptual disturbances noted. Insight and judgment are fair in that he is willing to be admitted voluntarily to a psychiatric unit. Fund of knowledge is adequate. The patient appears to have average intellect by virtue of vocabulary and educational attainment. DIAGNOSIS: Major depressive disorder, severe, recurrent, with anxious distress. ASSESSMENT: Kulwinder is a 24-year-old male with 3 known prior psychiatric admissions , 2 as a teenager and 1 two weeks ago at our facility. He has had 2 aborted suicide attempts in the past month. He was willing to be transferred to [facility] for psychiatric admission after disclosing most recent aborted attempt. The patient has consented to full psychiatric treatment including collaboration with outpatient providers and his family. PLAN: The patient is admitted to adult behavioral services unit on voluntary status. Code status is full. He is placed on 15-minute checks for safety. We have discussed the recommendation to increase the SSRI again and to utilize lorazepam as needed for anxiety. We will continue diphenhydramine for sleep. The patient is already participating in supportive milieu, individual sessions with staff, and psychoeducational groups. We will continue to monitor for mood and thought content. We will involve outpatient providers and the patient's mother in treatment and discharge planning. Estimated length of stay is 5 to 7 days. JANEY CLAUDIO NP [id number]/CPS #: [id number] JACINTO
[2019-04-21] MEDS: diPHENhydraMINE PO* 50 MG PO PRN (22:34)
[2019-04-22] MEDS: Multivitamins/Minerals TAB PO SCH (09:24)
[2019-04-22] MEDS: FLUoxetine CAP* 20 MG PO SCH (09:24)
--- NOTE | 2019-04-22 11:41 | PN ---
BSU: Group Therapy Note - Service Type Service Type: 53455 Group Psychotherapy
--- NOTE | 2019-04-22 12:02 | PN ---
Subjective - Subjective Date of Service: 04/22/19 Service Type: 38330 Hosp care 25 min moderate complexity Subjective: Patient reports adequate sleep last night. He continues to endorse low self worth and anxiety. He denies side effects from first dose of buproprion. He is agreeable to remain hospitalized to stabilize and identify outpatient treatment options. Objective - General Observations Appearance: Well Groomed Stature: WNL Posture: WNL Eye Contact: Average Behavior/Activity: Slowed - Interaction Observations Attitude Towards Examiner: Cooperative, Anxious Stated Mood: Dysphoric Affect: Flat Speech Pattern/Tone: Clear, Appropriate, Quiet Volume Thought Process: Impoverished Perception: WNL Thought Content: Depressive, Self-Deprecatory Thought Process: Lethality: Passive Wish Hallucination Type: Denies Delusion Type: Denies - Cognitive Function Orientation: A&O x 4 Level of Consciousness: Alert Cognition: Impaired Attention/Concentration Estimated Intelligence: Normal Insight: WNL Judgment Within Normal Limits: No Ability to Make Reasonable Decisions: Moderately Impaired - Medication Compliance Cooperative with Inpatient Medication Regimen: Yes - Group Participation Participates in Group Activities: Yes Assessment - Assessment Merits Inpatient Hospitalization: For Immediate Safety, For Stabilization Inpatient DSM-V Dx: F33.2 Clinical Impression: 24yo white male with 3 prior psychiatric hospitalizations (2 as a teen, and 1 at [facility] [place] two weeks ago) and history of depression and anxiety who presented to the ED after an appointment with his college counseling service. He has had 2 aborted suicide attempts in the past month. 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 He merits hospitalization for immediate safety and stabilization. Plan - Plan Treatment Plan: Name: ELI CHAMBERLAIN Birthdate: 1995 [id number] continue acute intensive psychiatric treatment. may decrease to q30min and allow staff pass/computer use. start buproprion XL 150mg daily, continue fluoxetine 60mg daily. continue lorazepam 0.5mg po prn anxiety and diphenhydramine 50mg po qhs prn insomnia. Continued Medication Management: Start Medication Medications: Current Medications Acetaminophen (Tylenol Tab*) 650 mg PO Q4H PRN PRN Reason: PAIN; OR TEMP >101 Al Hydrox/Mg Hydrox/Simethicone (Maalox Plus*) 30 ml PO Q4H PRN PRN Reason: INDIGESTION Bupropion HCl (Wellbutrin Xl *) 150 mg PO DAILY MYESHA Diphenhydramine HCl (Benadryl Po*) 50 mg PO BEDTIME PRN PRN Reason: INSOMNIA Last Admin: 04/21/19 22:34 Dose: 50 mg Fluoxetine HCl (Prozac Cap*) 60 mg PO DAILY MYESHA Last Admin: 04/22/19 09:24 Dose: 60 mg Lorazepam (Ativan Tab(*)) 0.5 mg PO Q6H PRN PRN Reason: ANXIETY Multivitamins/Minerals (Theragran/Minerals Tab*) 1 tab PO DAILY MYESHA Last Admin: 04/22/19 09:24 Dose: 1 tab - Discharge Plan Discharge Plan: Inpatient Hospitalization
[2019-04-22] MEDS: BuPROPion XL* 150 MG TAB.XL PO SCH (12:21)
[2019-04-22] MEDS: diPHENhydraMINE PO* 50 MG PO PRN (21:45)
[2019-04-23] MEDS: FLUoxetine CAP* 20 MG PO SCH (09:11)
[2019-04-23] MEDS: BuPROPion XL* 150 MG TAB.XL PO SCH (09:11)
[2019-04-23] MEDS: Multivitamins/Minerals TAB PO SCH (09:12)
[2019-04-24] MEDS: Multivitamins/Minerals TAB PO SCH (09:31)
[2019-04-24] MEDS: BuPROPion XL* 150 MG TAB.XL PO SCH (09:31)
[2019-04-24] MEDS: FLUoxetine CAP* 20 MG PO SCH (09:32)
--- NOTE | 2019-04-24 21:09 | PN ---
Subjective - Subjective Date of Service: 04/24/19 Service Type: 70038 Hosp care 25 min moderate complexity Subjective: Kulwinder says he was suicidal last Thursday and today he feels better. No other psychiatric issues reported by the patient or staffs. Objective - General Observations Appearance: Well Groomed Appears Stated Age: Yes Stature: WNL Posture: WNL Eye Contact: Average Behavior/Activity: WNL - Interaction Observations Attitude Towards Examiner: Cooperative Stated Mood: Euthymic Affect: Full Speech Pattern/Tone: Clear, Appropriate, Normal Volume Thought Process: Coherent, Goal Directed Perception: WNL Thought Content: WNL Hallucination Type: Denies Delusion Type: Denies - Cognitive Function Cognition: WNL Estimated Intelligence: Normal Insight: WNL Judgment Within Normal Limits: No Ability to Make Reasonable Decisions: Moderately Impaired - Medication Compliance Cooperative with Inpatient Medication Regimen: Yes - Group Participation Participates in Group Activities: Yes Assessment - Assessment Merits Inpatient Hospitalization: For Stabilization, Consolidate Improvements, Pending Safe DC Plan Inpatient DSM-V Dx: F33.2 Clinical Impression: 24yo white male with 3 prior psychiatric hospitalizations (2 as a teen, and 1 at [facility] [place] two weeks ago) and history of depression and anxiety who presented to the ED after an appointment with his college counseling service. He has had 2 aborted suicide attempts in the past month. 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 He merits hospitalization for immediate safety and stabilization. Plan - Plan Treatment Plan: Name: KULWINDER CHAMBERLAIN Birthdate: 1995 [id number] continue acute intensive psychiatric treatment. may decrease to q30min and allow staff pass/computer use. start buproprion XL 150mg daily, continue fluoxetine 60mg daily. continue lorazepam 0.5mg po prn anxiety and diphenhydramine 50mg po qhs prn insomnia. Continued Medication Management: Continue Outpt Medication Medications: Current Medications Acetaminophen (Tylenol Tab*) 650 mg PO Q4H PRN PRN Reason: PAIN; OR TEMP >101 Al Hydrox/Mg Hydrox/Simethicone (Maalox Plus*) 30 ml PO Q4H PRN PRN Reason: INDIGESTION Bupropion HCl (Wellbutrin Xl *) 150 mg PO DAILY MYESHA Last Admin: 04/24/19 09:31 Dose: 150 mg Diphenhydramine HCl (Benadryl Po*) 50 mg PO BEDTIME PRN PRN Reason: INSOMNIA Last Admin: 04/22/19 21:45 Dose: 50 mg Fluoxetine HCl (Prozac Cap*) 60 mg PO DAILY MYESHA Last Admin: 04/24/19 09:32 Dose: 60 mg Lorazepam (Ativan Tab(*)) 0.5 mg PO Q6H PRN PRN Reason: ANXIETY Multivitamins/Minerals (Theragran/Minerals Tab*) 1 tab PO DAILY MYESHA Last Admin: 04/24/19 09:31 Dose: 1 tab - Discharge Plan Discharge Plan: Outpatient Follow Up Outpatient Program: Private Clinician(s)
[2019-04-24] MEDS: diPHENhydraMINE PO* 50 MG PO PRN (23:45)
[2019-04-25] MEDS: FLUoxetine CAP* 20 MG PO SCH (09:27)
[2019-04-25] MEDS: Multivitamins/Minerals TAB PO SCH (09:27)
[2019-04-25] MEDS: BuPROPion XL* 150 MG TAB.XL PO SCH (09:28)
[2019-04-25 10:00] VITALS: BP 115/75
--- NOTE | 2019-04-25 13:05 | DCNOTE ---
Subjective - Subjective Service Types: 09682 Hosp DC Day Mgmt simple under 30 min Discharge Date: 04/25/19 Subjective: Max reports improved mood and anxiety. He has been utilizing journaling and speaking with loved ones when distressed. He reports fleeting thoughts of passive wish over the weekend. He endorses feeling more hopeful and states "I'm starting to see the light." His mother, Heidy, is present during visiting hours. We discuss current medications and suggested discharge plan, including taking medical leave and participating in ongoing outpatient treatment in [place]. Patient reports readiness for discharge today. Objective - General Observations Appearance: Well Groomed Appears Stated Age: Yes Stature: WNL Posture: WNL Eye Contact: Average Behavior/Activity: WNL - Interaction Observations Attitude Towards Examiner: Cooperative, Anxious Stated Mood: Anxious Affect: Full Speech Pattern/Tone: Clear, Appropriate, Normal Volume Thought Process: Coherent, Goal Directed Perception: WNL Thought Content: WNL Hallucination Type: None Delusion Type: None - Cognitive Function Orientation: A&O x 4 Level of Consciousness: Alert Cognition: WNL Estimated Intelligence: Normal Insight: WNL Judgment Within Normal Limits: Yes - Medication Compliance Cooperative with Inpatient Medication Regimen: Yes - Group Participation Participates in Group Activities: Yes DC Assessment - Assessment Clinical Impression: 24yo white male with 3 prior psychiatric hospitalizations (2 as a teen, and 1 at [facility] approx. two weeks ago) and history of depression and anxiety who presented to the ED after an appointment with his college counseling service. He has had 2 aborted suicide attempts in the past month. 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 He has stabilized in this setting and tolerated medication changes. Inpatient DSM-V Dx: F33.2 Discharge Planning - Discharge Planning Discharge Plan: Outpatient Follow Up Recommendations for Continuing Care: Medication Management, Psychotherapy, Primary Care Followup Medications: Current Medications Bupropion HCl (Wellbutrin Xl *) 150 mg PO DAILY MYESHA Last Admin: 04/25/19 09:28 Dose: 150 mg Diphenhydramine HCl (Benadryl Po*) 50 mg PO BEDTIME PRN PRN Reason: INSOMNIA Last Admin: 04/24/19 23:45 Dose: 50 mg Fluoxetine HCl (Prozac Cap*) 60 mg PO DAILY MYESHA Last Admin: 04/25/19 09:27 Dose: 60 mg Lorazepam (Ativan Tab(*)) 0.5 mg PO Q6H PRN PRN Reason: ANXIETY Last Admin: 04/25/19 12:50 Dose: 0.5 mg Discharge Planning: Prescriptions provided for discharge [x] Yes [] No Follow up care details as per social work arrangements: [facility] [place] Patient response to discharge plan: [x] eager for discharge [x] agreeable with discharge plan [] ambivalent about discharge [] disagrees with discharge today
--- NOTE | 2019-04-26 10:57 | DS ---
CC: [facility], Dr. Iqbal; [facility] in [place] * DISCHARGE SUMMARY: DATE OF ADMISSION: 04/20/19. DATE OF DISCHARGE: 04/25/19. SUPERVISING PSYCHIATRIST: Dr. Jeb Austin.* (DICTATED BY JANEY CLAUDIO NP) DISCHARGE DIAGNOSES: 1. Major depressive disorder with anxious distress. 2. Unspecified anxiety disorder. CONDITION AT THE TIME OF DISCHARGE: Improved. Kulwinder reports improved mood and improvement in anxiety. He has been utilizing adrenalin and speaking with loved ones when distressed. He reports fleeting thoughts of passive wish over the weekend. He endorses feeling more hopeful and states, "I am starting to see the light." His mother Heidy is present during visiting hours. We discussed current medications and suggested discharge plan including taking medical leave from college and participating in ongoing outpatient treatment in [place]. The patient reports readiness for discharge today. The patient is discharged to home. MENTAL STATUS EXAM: Kulwinder is adequately groomed, causally dressed and he is on clothing. He appears stated age. He sits with erect posture. No psychomotor abnormal activity present. The patient is alert and oriented x3. Eye contact is good. Speech is soft, articulate and spontaneous. Concentration is fair. Memory 3/3. Mood is "okay." Affect has full range. Thought process is coherent, logical and goal directed. Thought content is negative for suicidal ideation. He denies current passive wish. He denies HI or . He denies auditory or visual hallucinations. There are no perceptual disturbances noted. Fund of knowledge is excellent. Intelligence is average based on vocabulary and educational attainment. INSTRUCTIONS GIVEN TO THE PATIENT: A. Medications: 1. Bupropion XL 150 mg p.o. daily 2. Fluoxetine 60 mg p.o. daily. 3. Lorazepam 0.5 mg b.i.d. p.r.n. anxiety. The above were electronically prescribed to [facility] on [facility]. B. Diet: Regular. C. Activity: Ambulation as tolerated. Tobacco cessation is not applicable. There are no pending labs or diagnostic studies. D. Followup care: The patient will follow up with [facility] and meet with Nathalie Mcfarlandreligious assistant after discharge and the [facility] [place] [place] [facility] health services. E. Substance use followup: Not applicable. HOSPITAL COURSE: Part A: Reason for Admission: The patient presented to the emergency department via Law Enforcement from [facility] due to thoughts of suicidal ideation and an aborted suicide attempt the day before. 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 The patient has been experiencing increased depression and anxiety in the past month during the transition back to senior year at [employer]. While hospitalized last month, we increased his fluoxetine from 20 to 40 mg and he was prescribed clonidine as needed for anxiety. He was referred to a psychiatrist at [facility] through the patient's primary care provider, Dr. Ibqal at [facility]. The patient reports he has been trying to go to classes, trying to participate in extracurricular activities, but is having difficulty leaving his apartment. He reports he was not able to attend the appointment with psychiatrist and he has not been following through with either academic or project hire requirements. He reports depressive thoughts of that he is a failure , that he cannot do this. He reports feeling numb most of the time. He endorses anhedonia, excessive guilt, hopelessness, and helplessness. He reports decreased appetite. He states even when he does attend tennis practice or anything that he typically enjoys, it feels like he is just going through the motions. He reports improved sleep, but also endorses hypersomnia. He reports utilizing clonidine for anxiety, but this has had limited effect. He reports Benadryl has been helpful for sleep. The patient states that he left his apartment on Thursday purposefully to go near a bridge. He went to a bridge near campus with a plan to jump. He states that the safety net stopped him from going through with the jump. He sat down next to the stream and eventually left and returned home. He then went to the counseling appointment the following day, disclosed this information to his therapist and was agreeable to be transported to the hospital. On the day of admission, the patient continued to endorse passive wish. He reports thoughts of strangling himself with a belt or overdosing on medications. He presents as dysphoric and anxious. He identifies that he is ashamed that he is still symptomatic. He reports he has discussed the potential for pursuing medical leave with the manager molecular at , [facility]. He and his mother have been in contact and she is making arrangements to come to [place]. Social Work is going to reach out to the patient's mother. Part B: Psychiatric Treatment Rendered: The patient was admitted to adult behavioral services unit on voluntary status. Code status was full. He was placed on 15-minute checks for safety. This was decreased to 30 minute observation and he was allowed computer use and staff pass. He agreed to increase fluoxetine to 60 mg. He was given a fresh dose of bupropion 100 mg and did not have any untoward effects. The following day we changed that to bupropion 150 mg XL. The patient presented as anxious to staff. He was encouraged to utilize as needed lorazepam, which he did on the day of discharge. We discussed with the patient and his mother the current medications and meals restriction. The patient and his mother were agreeable for the patient to be discharged. He denied offer to remain hospitalized one more night. He reported feeling confident that he and his mother can leave and work on his transition back to home. We discussed the pros and cons of taking a medical leave. This radio news writer discussed all of the above with the patient's primary care provider, Dr. Iqbal, who is supportive of all of the above. We wish Max the very best. He is encouraged to call with any questions after discharge. He was discharged by nursing staff to his mother after dinner on . JANEY CLAUDIO NP [id number]/[facility] #: [id number] JACINTO
== END 2019-04-25 17:48 | disposition home or self-care (01) | DRG 751 ==
LOC: ED 15:24 → BSU 18:47
PROVIDERS: ADMIT Psychiatry & Neurology Psychiatry; ATTEND Psychiatry & Neurology Psychiatry
DX: F33.2 Major depressive disorder, recurrent severe without psychotic features (principal); R45.851 Suicidal ideations; F41.9 Anxiety disorder, unspecified; Z79.899 Other long term (current) drug therapy; Z81.8 Family history of other mental and behavioral disorders
CPT/HCPCS: 36415; 80053; 80061; 80307; 80320; 81003; 83036; 85025; 90853; 99222; 99232; 99238; 99285; A9270-GY; G0480